=== PATIENT | female | born 1940 | race Caucasian/White ===

== ENCOUNTER 2017-06-17 11:35 | Inpatient (IN) | payer MEDICARE, BC ==
[2017-06-17] MEDS ORDERED: NORMAL SALINE 1000 ML 1,000 ML IV ONE (12:12)
--- NOTE | 2017-06-17 12:22 | ER Document Report ---
ED General - General Chief Complaint: Altered Mental Status Stated Complaint: ALTERED MENTAL STATUS Time Seen by Provider: 06/17/17 12:15 Notes: Patient was brought in for evaluation of altered mental status and not acting right intermittently over the past couple of weeks. She was seen for the same problem at [facility] in [place] last weekend and admitted to that facility Wednesday for a UTI for which she got IV fluids and antibiotics. She was discharged home from there Wednesday on amoxicillin as an outpatient. She seemed to be fine during the initial discharge time, but last night, her son found her taking all of the meats out of the freezer and putting cloths in the freezer. Patient does not remember doing this. Son says she has not been vomiting but did have diarrhea 2 or 3 times yesterday. Patient says that she has not had any diarrhea since her discharge from [facility]. She has not been noted to have any fever although she has had some heavy sweats. 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 Patient wears oxygen when sleeping at night. Does not have asthma or COPD. Never was a smoker. Patient is complaining of pain in her back and pain in her leg. She has been on fentanyl 100 mcg patches, but that was decreased to a 50 mcg patch yesterday. TRAVEL OUTSIDE OF THE [place] IN LAST 30 DAYS: No - Related Data Allergies/Adverse Reactions: Sulfa (Sulfonamide Antibiotics) Allergy (Verified 06/17/17 12:07) Past Medical History - Social History Smoking Status: Never Smoker Family History: Reviewed & Not Pertinent Patient has suicidal ideation: No Patient has homicidal ideation: No - Past Medical History Cardiac Medical History: Reports: Hx Hypertension Neurological Medical History: Reports: Hx Cerebrovascular Accident - Or mini strokes Musculoskeltal Medical History: Reports Hx Arthritis Past Surgical History: Reports: Hx Orthopedic Surgery - Back surgery Review of Systems - Review of Systems Notes: REVIEW OF SYSTEMS: Information provided by sons. CONSTITUTIONAL : Denies fever. EENT: Denies eye, ear, nose or mouth or throat pain or other symptoms. CARDIOVASCULAR: Denies chest pain. RESPIRATORY: Denies cough, chest congestion, or shortness of breath. Wears oxygen at night while sleeping. GASTROINTESTINAL: Denies abdominal pain or nausea, vomiting. Diarrhea 2 or 3 times yesterday. GENITOURINARY: Denies difficulty or painful urinating, urinary frequency, blood in urine. MUSCULOSKELETAL: Has chronic back pain but no neck pain. Denies joint pain or swelling. SKIN: Denies rash or skin lesions. NEUROLOGICAL: Denies LOC, but altered mental status. Denies headache. Denies sensory loss or motor deficits. ALL OTHER SYSTEMS REVIEWED AND NEGATIVE. -: Yes ROS unobtainable due to patient's medical condition Physical Exam - Vital signs Vitals: Resp Pulse Ox 13 99 06/17/17 12:02 06/17/17 12:02 Interpretation: Hypotensive - Notes Notes: PHYSICAL EXAMINATION: GENERAL: Well-appearing, in no acute distress. Blood pressure 90/60. HEAD: Atraumatic, normocephalic. EYES: Pupils equal round and reactive to light, extraocular movements intact. ENT: oropharynx clear without exudates. Moist mucous very dry. NECK: Normal range of motion, supple. LUNGS: Breath sounds clear and equal bilaterally. HEART: Regular rate and rhythm with grade 2/6 systolic murmur. ABDOMEN: Soft, nontender. No guarding or rebound. No masses. BACK: No tenderness throughout entire back. EXTREMITIES: Normal range of motion without pain. NEUROLOGICAL: Normal speech, gait not tested. Normal sensory, motor, and reflex exams. Awake, alert, and answers some questions, but at other times does not have good memory of what happened. PSYCH: Normal mood, normal affect. SKIN: Warm, dry, no rashes. Course - Re-evaluation Re-evalutation: 06/17/17 14:44 Spoke with our hospitalist who will admit the patient for IV fluids and hydration and antibiotics. Patient has remained stable throughout her stay since her blood pressure initially responded to fluids. - Vital Signs Vital signs: Temp Pulse Resp BP Pulse Ox 98.4 F 13 100/52 L 99 06/17/17 12:07 06/17/17 12:02 06/17/17 12:08 06/17/17 12:02 - Laboratory Result Diagrams: 06/17/17 11:52 06/17/17 11:52 Laboratory results interpreted by me: 06/17/17 06/17/17 06/17/17 11:46 11:52 11:52 Hgb 8.6 L Hct 28.2 L MCV 71 L MCH 21.8 L MCHC 30.5 L RDW 16.6 H BUN 65 H Creatinine 2.79 H Est GFR ( Amer) 20 L Est GFR (Non-Af Amer) 16 L Glucose 124 H POC Glucose Total Protein 6.0 L Urine Protein 30 H Urine Ketones TRACE H Urine Bilirubin SMALL H Ur Leukocyte Esterase TRACE H 06/17/17 13:29 Hgb Hct MCV MCH MCHC RDW BUN Creatinine Est GFR ( Amer) Est GFR (Non-Af Amer) Glucose POC Glucose 125 H Total Protein Urine Protein Urine Ketones Urine Bilirubin Ur Leukocyte Esterase - Diagnostic Test Radiology results interpreted by me: 06/17/17 14:45 Chest x-ray with chronic pleural thickening and COPD but no other significant findings. - EKG Interpretation by Me EKG shows normal: Sinus rhythm Rate: Normal Rhythm: NSR Voltage: Consistant with LVH Critical Care Note - Critical Care Note Total time excluding time spent on procedures (mins): 60 Discharge - Discharge Clinical Impression: Prerenal azotemia, Dehydration, Altered mental status, Hypotension Condition: Stable Disposition: ADMITTED INPATIENT Admitting Provider: Hospitalist Unit Admitted: Medical Floor
[2017-06-17 12:28] LABS: APPEARANCE,URINE CLOUDY; BILIRUBIN,URINE SMALL (NEGATIVE); GLUCOSE, URINE NEGATIVE (NEGATIVE); KETONES,URINE TRACE mg/dL (NEGATIVE); LEUKOCYTE ESTERASE,URINE TRACE (NEGATIVE); NITRITE,URINE NEGATIVE (NEGATIVE); PROTEIN,URINE 30 mg/dL (NEGATIVE); URINE SPECIFIC GRAVITY 1.019; UROBILINOGEN,URINE NEGATIVE mg/dL (<2.0)
[2017-06-17 12:30] LABS: INTERNATIONAL RATION (INR) 0.99; PROTHROMBIN TIME 13.6 SEC (11.4-15.4)
[2017-06-17 12:30] LABS: COLOR,URINE YELLOW
[2017-06-17 12:31] LABS: ABSOLUTE BASOPHILS # (AUTO) 0.1 10^3/uL (0.0-0.2); ABSOLUTE EOSINOPHILS # (AUTO) 0.3 10^3/uL (0.0-0.6); ABSOLUTE LYMPHOCYTES (AUTO) 2.3 10^3/uL (0.5-4.7); ABSOLUTE MONOCYTES (AUTO) 0.8 10^3/uL (0.1-1.4); ABSOLUTE NEUT (AUTO) 4.7 10^3/uL (1.7-8.2); EOSINOPHILS % (AUTO) 3.3 % (0-6); HEMATOCRIT 28.2 % (36.0-47.0); HEMOGLOBIN 8.6 g/dL (12.0-15.5); LYMPHOCYTES % (AUTO) 28.6 % (13-45); MEAN CORPUSCULAR HEMOGLOBIN 21.8 pg (27.0-33.4); MEAN CORPUSCULAR HGB CONC 30.5 g/dL (32.0-36.0); MEAN CORPUSCULAR VOLUME 71 fl (80-97); MONOCYTES % (AUTO) 9.9 % (3-13); PLATELET COUNT 415 10^3/uL (150-450); RED BLOOD COUNT 3.95 10^6/uL (3.72-5.28); RED CELL DISTRIBUTION WIDTH 16.6 % (11.5-14.0); SEGMENTED NEUTROPHILS % (AUTO) 57.2 % (42-78); TOTAL CELLS COUNTED % (AUTO) 100 %; WHITE BLOOD COUNT 8.2 10^3/uL (4.0-10.5)
[2017-06-17 12:34] LABS: ALANINE AMINOTRANSFERASE 25 U/L (9-52); ALBUMIN 3.6 g/dL (3.5-5.0); ALKALINE PHOSPHATASE 68 U/L (38-126); ANION GAP 15 (5-19); ASPARTATE AMINO TRANSFERASE 24 U/L (14-36); BILIRUBIN,DIRECT 0.3 mg/dL (0.0-0.4); BILIRUBIN,TOTAL 0.3 mg/dL (0.2-1.3); BLOOD UREA NITROGEN 65 mg/dL (7-20); CALCIUM 8.7 mg/dL (8.4-10.2); CARBON DIOXIDE 24 mmol/L (22-30); CHLORIDE 101 mmol/L (98-107); GLUCOSE 124 mg/dL (75-110); POTASSIUM 4.1 mmol/L (3.6-5.0); SODIUM 139.8 mmol/L (137-145)
[2017-06-17] MEDS ORDERED: DEXTROSE 5%-NORMAL SALINE 1,000 ML IV ONE (12:55)
--- NOTE | 2017-06-17 13:12 | RADIOLOGY REPORT (SQ) ---
EXAM DESCRIPTION: CHEST SINGLE VIEW COMPLETED DATE/TIME: 06/17/2017 12:58 pm REASON FOR STUDY: Hypotension COMPARISON: None. EXAM PARAMETERS: NUMBER OF VIEWS: One view. TECHNIQUE: Single frontal radiographic view of the chest acquired. RADIATION DOSE: NA LIMITATIONS: None. FINDINGS: LUNGS AND PLEURA: Marked hyperinflation of the lungs consistent with COPD. Chronic left p leural thickening. Minimal bilateral apical pleural thickening. MEDIASTINUM AND HILAR STRUCTURES: No masses. Contour normal. HEART AND VASCULAR STRUCTURES: The heart is normal with aortic atherosclerosis. BONES: No acute findings. HARDWARE: None in the chest. OTHER: Chest leads in place. IMPRESSION: COPD. Chronic left pleural thickening. TECHNICAL DOCUMENTATION: JOB ID: [id number] [employer]- All Rights Reserved Reading location - IP/workstation name: [email or web address]
[2017-06-17] MEDS ORDERED: CEFTRIAXONE INJ 1000 MG VIAL IV ONE (13:23)
[2017-06-17] MEDS ORDERED: ONDANSETRON HCL INJ/PF 4 MG/2 ML SDV IV PRN (15:07)
[2017-06-17] MEDS ORDERED: NORMAL SALINE 1000 ML 1,000 ML IV PRN (15:07)
[2017-06-17] MEDS ORDERED: ALBUTEROL SULFATE 0.083% NEB 2.5 MG/3 ML AMPUL NEB PRN (15:07)
[2017-06-17] MEDS ORDERED: ACETAMINOPHEN 325 MG TABLET PO PRN (15:07)
[2017-06-17 15:37] LABS: VENOUS BLOOD BASE EXCESS -2.6 mmol/L; VENOUS BLOOD PCO2 50.5 mmHg (35-63); VENOUS BLOOD PH 7.29 (7.30-7.42)
--- NOTE | 2017-06-17 15:51 | PDOC H&P ---
History of Present Illness Admission Date/PCP: 06/17/17 15:00 Patient complains of: Confusion History of Present Illness: REBECCA HERNANDES is a 77 year old female discharged from [facility] about a week ago following a stay for urinary tract infection. She initially did well, but has been getting more lethargic and confused over the last couple days. Son found her taking all the meat out of the freezer and putting the laundry in, and brought her into the emergency department. She admits that she has not been eating or drinking. States she just does not feel like it. She states she has a neurogenic bladder and has to self cath. She states she has considerable difficulty eating the catheter into the urethra , and has run out of supplies in any case. She denies dysuria, fevers, chills, nausea, vomiting, or diarrhea. She has had no swelling. Past Medical History Cardiac Medical History: Reports: Congestive Heart Failure - Diastolic, Hypertension EENT Medical History: Reports: Cataracts Neurological Medical History: Reports: Other - Neurogenic bladder Renal/ Medical History: Reports: None Malignancy Medical History: Reports: None Musculoskeltal Medical History: Reports: Arthritis Past Surgical History Past Surgical History: Reports: Orthopedic Surgery - Back surgery Social History Information Source: Patient Lives with: Family - Son Smoking Status: Never Smoker Frequency of Alcohol Use: None Hx Recreational Drug Use: No - Advance Directive Resuscitation Status: Full Code Surrogate healthcare decision maker:: Her son Family History Family History: Reviewed & Not Pertinent Parental Family History Reviewed: Yes Children Family History Reviewed: No Sibling(s) Family History Reviewed.: No Medication/Allergy Home Medications: Alprazolam 1 mg PO HSP PRN 06/17/17 Amoxicillin 500 mg PO Q8 06/17/17 Aspirin 81 mg PO DAILY 06/17/17 Cyclobenzaprine HCl 5 mg PO TID PRN 06/17/17 Famotidine 40 mg PO DAILY 06/17/17 Fentanyl [Duragesic 50 Mcg/Hr Transdermal Patch] 1 each TD Q3D 06/17/17 Fluticasone Propionate [Flovent Diskus] 50 mcg IH PRN PRN 06/17/17 Furosemide 20 mg PO DAILY 06/17/17 Gabapentin 800 mg PO TID 06/17/17 Losartan Potassium 50 mg PO BID 06/17/17 Pramipexole Di-HCl [Mirapex] 0.5 mg PO DAILY 06/17/17 Propranolol HCl [Propranolol HCl ER] 120 mg PO DAILY 06/17/17 Allergies/Adverse Reactions: Sulfa (Sulfonamide Antibiotics) Allergy (Verified 06/17/17 12:07) Review of Systems All systems: reviewed and no additional remarkable complaints except as stated Physical Exam Vital Signs: Temp Pulse Resp BP Pulse Ox 97.7 F 13 105/46 L 100 06/17/17 15:16 06/17/17 15:16 06/17/17 15:16 06/17/17 15:16 General appearance: PRESENT: no acute distress, thin Respiratory exam: PRESENT: clear to auscultation marcia Cardiovascular exam: PRESENT: RRR GI/Abdominal exam: PRESENT: soft Extremities exam: PRESENT: other Musculoskeletal exam: PRESENT: normal inspection Neurological exam: PRESENT: alert, oriented to person, oriented to place, oriented to situation, CN II-XII grossly intact Psychiatric exam: PRESENT: appropriate affect Skin exam: PRESENT: warm Results Impressions: Chest X-Ray 06/17/17 12:27 IMPRESSION: COPD. Chronic left pleural thickening. Assessment & Plan - Diagnosis (1) Acute encephalopathy Is this a current diagnosis for this admission?: Yes Plan: Improved since presentation with fluid. Continue to monitor with treatment (2) ARF (acute renal failure) Is this a current diagnosis for this admission?: Yes Plan: Presumably due to volume depletion. Baseline creatinine 0.76 Unclear why she is not taking enough in. Clearly does not like to self cath which may induce her to not drink liquids. Because of the question of bladder outlet obstruction I will place a Horan catheter in order to closely monitor her urine output. Recheck her labs in the morning. Once she is more alert I will remove the Horan catheter and see how she does self catheterizing. (3) UTI (urinary tract infection) Qualifiers: Encounter type: initial encounter Is this a current diagnosis for this admission?: Yes Plan: Unclear if this is residual from her previous urinary tract infection or new. I am inclined to think it is related to self-catheterization/bladder outflow obstruction. (4) Microcytic anemia Is this a current diagnosis for this admission?: Yes Plan: Check an iron reticulocyte count in the morning, as well as she would her hemoglobin is after rehydration. (5) Hypotension Is this a current diagnosis for this admission?: Yes Plan: Improved with fluid. Continue to monitor closely. Hold her antihypertensives and add them back as her blood pressure improves.
[2017-06-17 16:42] LABS: ABSOLUTE RETICS # 0.058 10^6/uL (0.028-0.122); RETICULOCYTE COUNT (AUTO) 1.49 % (0.66-2.85)
[2017-06-17 16:59] LABS: ALBUMIN 3.3 g/dL (3.5-5.0); ANION GAP 14 (5-19); BLOOD UREA NITROGEN 54 mg/dL (7-20); CALCIUM 8.7 mg/dL (8.4-10.2); CARBON DIOXIDE 23 mmol/L (22-30); CHLORIDE 105 mmol/L (98-107); GLUCOSE 126 mg/dL (75-110); PHOSPHORUS 6.1 mg/dL (2.5-4.5); POTASSIUM 3.5 mmol/L (3.6-5.0); SODIUM 141.5 mmol/L (137-145)
--- NOTE | 2017-06-17 23:26 | EKG REPORT ---
SEVERITY:- ABNORMAL ECG - SINUS RHYTHM PROBABLE LEFT ATRIAL ABNORMALITY NONSPECIFIC ST ABNORMALITIES, INFERIOR LEADS : Confirmed by: Sera Gold 17-Jun-2017 23:26:11
[2017-06-18] MEDS ORDERED: GABAPENTIN 300 MG CAPSULE PO ONE (03:00)
[2017-06-18] MEDS ORDERED: ALPRAZOLAM 0.5 MG TABLET PO ONE ×3 (03:00→05:30)
[2017-06-18] MEDS ORDERED: CYCLOBENZAPRINE HCL 10 MG TABLET PO ONE (05:45)
[2017-06-18] MEDS ORDERED: OXYCODONE-ACETAMINOPHEN 5-325 MG TABLET PO ONE (05:45)
[2017-06-18] MEDS ORDERED: LORAZEPAM INJ 2 MG/1 ML VIAL IV ONE ×2 (06:00→12:00)
[2017-06-18 07:15] LABS: ABSOLUTE EOSINOPHILS # (AUTO) 0.4 10^3/uL (0.0-0.6); ABSOLUTE LYMPHOCYTES (AUTO) 2.2 10^3/uL (0.5-4.7); ABSOLUTE MONOCYTES (AUTO) 0.8 10^3/uL (0.1-1.4); ABSOLUTE NEUT (AUTO) 3.7 10^3/uL (1.7-8.2); BASOPHILS % (AUTO) 0.5 % (0-2); EOSINOPHILS % (AUTO) 5.2 % (0-6); HEMATOCRIT 28.4 % (36.0-47.0); HEMOGLOBIN 8.6 g/dL (12.0-15.5); LYMPHOCYTES % (AUTO) 31.3 % (13-45); MEAN CORPUSCULAR HEMOGLOBIN 21.7 pg (27.0-33.4); MEAN CORPUSCULAR HGB CONC 30.2 g/dL (32.0-36.0); MEAN CORPUSCULAR VOLUME 72 fl (80-97); MONOCYTES % (AUTO) 10.7 % (3-13); PLATELET COUNT 390 10^3/uL (150-450); RED BLOOD COUNT 3.96 10^6/uL (3.72-5.28); SEGMENTED NEUTROPHILS % (AUTO) 52.3 % (42-78); TOTAL CELLS COUNTED % (AUTO) 100 %; WHITE BLOOD COUNT 7.2 10^3/uL (4.0-10.5)
[2017-06-18] MEDS ORDERED: CLONAZEPAM 1 MG TABLET PO PRN (07:49)
[2017-06-18 09:24] LABS: HEMATOCRIT 26.9 % (36.0-47.0); HEMOGLOBIN 8.2 g/dL (12.0-15.5); MEAN CORPUSCULAR HEMOGLOBIN 21.8 pg (27.0-33.4); MEAN CORPUSCULAR HGB CONC 30.6 g/dL (32.0-36.0); MEAN CORPUSCULAR VOLUME 71 fl (80-97); PLATELET COUNT 414 10^3/uL (150-450); RED BLOOD COUNT 3.77 10^6/uL (3.72-5.28); RED CELL DISTRIBUTION WIDTH 16.6 % (11.5-14.0); WHITE BLOOD COUNT 7.8 10^3/uL (4.0-10.5)
[2017-06-18 09:39] LABS: ALBUMIN 3.3 g/dL (3.5-5.0); ANION GAP 11 (5-19); BLOOD UREA NITROGEN 42 mg/dL (7-20); CARBON DIOXIDE 24 mmol/L (22-30); CHLORIDE 109 mmol/L (98-107); GLUCOSE 138 mg/dL (75-110); POTASSIUM 4.1 mmol/L (3.6-5.0); SODIUM 144.2 mmol/L (137-145)
[2017-06-18 09:48] LABS: PHOSPHORUS 3.3 mg/dL (2.5-4.5)
[2017-06-18] MEDS ORDERED: CEFTRIAXONE SODIUM 1,000 MG in NORMAL SALINE 100 ML IV SCH (10:00)
[2017-06-18] MEDS ORDERED: CEFTRIAXONE 1 GM/D5W RTU 1 GM/50 ML RTUPB IV SCH (10:00)
[2017-06-18] MEDS ORDERED: LORAZEPAM INJ 2 MG/1 ML VIAL ONE (11:37)
[2017-06-18] MEDS: FLUTICASONE NASAL SPRAY 50 MCG/SPRY 120 SPRAY/16 GM NAREB SCH (12:42)
[2017-06-18] MEDS: FAMOTIDINE 20 MG TABLET PO SCH (12:42)
--- NOTE | 2017-06-18 12:55 | PDOC PROGRESS REPORT ---
Subjective Progress Note for:: 06/18/17 Subjective:: When I was in the room the patient was asleep. She slept through the exam. I discussed the case with her daughter who is lying in a bed next to her. She has had several episodes of very agitated behavior wherein she has demanded Xanax. I think this is the root problem. Reason For Visit: PRERENAL AZOTEMIA DEHYDRATIONALTERED MENTAL STATUS Physical Exam Vital Signs: Temp Pulse Resp BP Pulse Ox 99.1 F 83 17 122/45 L 92 06/18/17 07:51 06/18/17 07:51 06/18/17 07:51 06/18/17 07:51 06/18/17 07:51 Intake & Output 06/17/17 06/18/17 06/19/17 06:59 06:59 06:59 Intake Total 722 Output Total 975 Balance -253 Weight 60.8 kg General appearance: PRESENT: no acute distress Respiratory exam: PRESENT: clear to auscultation marcia Cardiovascular exam: PRESENT: RRR GI/Abdominal exam: PRESENT: soft Neurological exam: PRESENT: other - Moving all extremities Psychiatric exam: PRESENT: other - Alternately sleeping and very agitated Skin exam: PRESENT: warm Results Laboratory Results: 06/18/17 09:08 06/18/17 09:08 06/17/17 06/17/17 06/17/17 15:30 16:30 16:30 WBC 7.2 RBC 3.96 Hgb 8.6 L Hct 28.4 L MCV 72 L MCH 21.7 L MCHC 30.2 L RDW 17.0 H Plt Count 390 Seg Neutrophils % 52.3 Lymphocytes % 31.3 Monocytes % 10.7 Eosinophils % 5.2 Basophils % 0.5 Absolute Neutrophils 3.7 Absolute Lymphocytes 2.2 Absolute Monocytes 0.8 Absolute Eosinophils 0.4 Absolute Basophils 0.0 Retic Count (auto) Absolute Retic VBG pH 7.29 L VBG pCO2 50.5 VBG HCO3 24.0 VBG Base Excess -2.6 Sodium 141.5 Potassium 3.5 L Chloride 105 Carbon Dioxide 23 Anion Gap 14 BUN 54 H Creatinine 2.13 H Est GFR ( Amer) 27 L Est GFR (Non-Af Amer) 22 L Glucose 126 H Calcium 8.7 Phosphorus 6.1 H Magnesium 1.9 Iron Albumin 3.3 L TSH 06/17/17 06/17/17 06/17/17 16:30 16:30 16:30 WBC RBC Hgb Hct MCV MCH MCHC RDW Plt Count Seg Neutrophils % Lymphocytes % Monocytes % Eosinophils % Basophils % Absolute Neutrophils Absolute Lymphocytes Absolute Monocytes Absolute Eosinophils Absolute Basophils Retic Count (auto) 1.49 Absolute Retic 0.058 VBG pH VBG pCO2 VBG HCO3 VBG Base Excess Sodium Potassium Chloride Carbon Dioxide Anion Gap BUN Creatinine Est GFR ( Amer) Est GFR (Non-Af Amer) Glucose Calcium Phosphorus Magnesium Iron 12.5 L Albumin TSH 0.56 06/18/17 06/18/17 09:08 09:08 WBC 7.8 RBC 3.77 Hgb 8.2 L Hct 26.9 L MCV 71 L MCH 21.8 L MCHC 30.6 L RDW 16.6 H Plt Count 414 Seg Neutrophils % Lymphocytes % Monocytes % Eosinophils % Basophils % Absolute Neutrophils Absolute Lymphocytes Absolute Monocytes Absolute Eosinophils Absolute Basophils Retic Count (auto) Absolute Retic VBG pH VBG pCO2 VBG HCO3 VBG Base Excess Sodium 144.2 Potassium 4.1 Chloride 109 H Carbon Dioxide 24 Anion Gap 11 BUN 42 H Creatinine 1.01 Est GFR ( Amer) > 60 Est GFR (Non-Af Amer) 53 L Glucose 138 H Calcium 9.0 Phosphorus 3.3 D Magnesium Iron Albumin 3.3 L TSH Impressions: Chest X-Ray 06/17/17 12:27 IMPRESSION: COPD. Chronic left pleural thickening. Assessment & Plan - Diagnosis (1) Benzodiazepine dependence Is this a current diagnosis for this admission?: Yes Plan: She regulates her own Xanax use. We do not have any old records on her, but she certainly acts like someone in benzodiazepine withdrawal. She is on multiple pain medications for fibromyalgia. (2) Acute encephalopathy Is this a current diagnosis for this admission?: Yes (3) ARF (acute renal failure) Is this a current diagnosis for this admission?: Yes Plan: Considerably improved overnight. Continue present management. I would anticipate she could go home in the morning though daughter is stating that the family is no longer able to care for her. Wherever she goes I think she needs someone to monitor her medication use. (4) UTI (urinary tract infection) Qualifiers: Encounter type: initial encounter Is this a current diagnosis for this admission?: Yes Plan: Unclear if this is residual from her previous urinary tract infection or new. I am inclined to think it is related to self-catheterization/bladder outflow obstruction. I will discontinue her Horan and monitor her urine output. overhauler helper to oral antibiotics. (5) Hypotension Is this a current diagnosis for this admission?: Yes Plan: Improved with fluid. Continue to monitor closely. Restart her oral antihypertensives (6) Iron deficiency anemia Is this a current diagnosis for this admission?: Yes Plan: Replace iron
[2017-06-18] MEDS: GABAPENTIN 400 MG CAPSULE PO SCH ×2 (13:12→21:13)
[2017-06-18] MEDS: PROPRANOLOL HCL 40 MG TABLET PO SCH ×2 (14:28→21:13)
[2017-06-18] MEDS: FERROUS SULFATE 325 MG TABLET PO SCH (17:23)
[2017-06-18] MEDS: ASCORBIC ACID 500 MG TABLET PO SCH (17:23)
[2017-06-18] MEDS ORDERED: FENTANYL 50 MCG/HR PATCH.TD72 TD SCH (19:00)
[2017-06-18] MEDS: CLONAZEPAM 1 MG TABLET PO SCH (21:12)
[2017-06-18] MEDS ORDERED: PRAMIPEXOLE DI-HCL 0.5 MG TABLET PO SCH (22:00)
[2017-06-19] MEDS: GABAPENTIN 400 MG CAPSULE PO SCH (07:04)
[2017-06-19] MEDS: PROPRANOLOL HCL 40 MG TABLET PO SCH (07:05)
[2017-06-19 08:02] VITALS: BP 140/59
[2017-06-19] MEDS: FAMOTIDINE 20 MG TABLET PO SCH (09:03)
[2017-06-19] MEDS: FERROUS SULFATE 325 MG TABLET PO SCH (09:04)
[2017-06-19] MEDS: CLONAZEPAM 1 MG TABLET PO SCH (09:04)
[2017-06-19] MEDS: FLUTICASONE NASAL SPRAY 50 MCG/SPRY 120 SPRAY/16 GM NAREB SCH (09:04)
[2017-06-19] MEDS: ASCORBIC ACID 500 MG TABLET PO SCH (09:04)
[2017-06-19] MEDS ORDERED: (PENDING PHARMACY ID) (Propranolol Hcl [Propranolol Hcl Er] 120 MG) PO SCH (10:00)
[2017-06-19] MEDS ORDERED: CEFPODOXIME 200 MG TABLET PO SCH (10:00)
[2017-06-19] MEDS ORDERED: CEFTRIAXONE SODIUM 1,000 MG in DEXTROSE 5%-WATER 50 ML IV SCH (10:00)
--- NOTE | 2017-06-19 15:06 | PDOC DISCHARGE SUMMARY ---
General - Admit/Disc Date/PCP Admission Date/Primary Care Provider: 06/17/17 15:00 Discharge Date: 06/19/17 - Discharge Diagnosis (1) ARF (acute renal failure) Is this a current diagnosis for this admission?: Yes Summary: Resolved with hydration (2) Benzodiazepine dependence Is this a current diagnosis for this admission?: Yes Summary: She is on a number of sedating medications and was very demanding of benzodiazepines in particular. I think polypharmacy is a significant part of her underlying pathology. She is on multiple medications for fibromyalgia that are of no known benefit. But after having been on them for years, she is certainly dependent. (3) Acute encephalopathy Is this a current diagnosis for this admission?: Yes Summary: Multifactorial including acute renal failure and polypharmacy (4) UTI (urinary tract infection) Is this a current diagnosis for this admission?: Yes Summary: Very mild. Treated with Vantin. I will send her out on 3 more days (5) Hypotension Is this a current diagnosis for this admission?: Yes Summary: Resolved with fluid (6) Iron deficiency anemia Is this a current diagnosis for this admission?: Yes Summary: Iron replacement - Additional Information Resuscitation Status: Full Code Discharge Diet: As Tolerated Discharge Activity: Activity As Tolerated Prescriptions: Cefpodoxime Proxetil [Vantin 200 mg Tablet] 200 mg PO Q12 #6 tablet Clonazepam [Klonopin 1 mg Tablet] 1 mg PO Q12 #60 tablet Home Medications: Alprazolam 1 mg PO DAILYP PRN 06/17/17 Famotidine [Pepcid 40 mg Tablet] 40 mg PO DAILY 06/17/17 Fluticasone Propionate [Flonase Nasal [place] 50 Mcg/[place] 16 gm] 1 spray NAREB DAILY 06/17/17 Gabapentin [Neurontin] 800 mg PO Q8 06/17/17 Pramipexole Di-HCl [Pramipexole Dihydrochloride] 0.5 mg PO QHS 06/17/17 Propranolol HCl [Propranolol HCl ER] 120 mg PO DAILY 06/17/17 Ascorbic Acid [Vitamin C 500 mg Tablet] 500 mg PO BIDPCBS tablet 06/19/17 Cefpodoxime Proxetil [Vantin 200 mg Tablet] 200 mg PO Q12 #6 tablet 06/19/17 Clonazepam [Klonopin 1 mg Tablet] 1 mg PO Q12 #60 tablet 06/19/17 History of Present Illness History of Present Illness: REBECCA HERNANDES is a 77 year old female discharged from [facility] about a week ago following a stay for urinary tract infection. She initially did well, but has been getting more lethargic and confused over the last couple days. Son found her taking all the meat out of the freezer and putting the laundry in, and brought her into the emergency department. She admits that she has not been eating or drinking. States she just does not feel like it. She states she has a neurogenic bladder and has to self cath. She states she has considerable difficulty eating the catheter into the urethra , and has run out of supplies in any case. She denies dysuria, fevers, chills, nausea, vomiting, or diarrhea. She has had no swelling. Hospital Course Hospital Course: She was hydrated vigorously with improvement in her renal function overnight. She was very demanding of sedatives including narcotics and benzodiazepines. Her family seems to be aware of her polypharmacy problem, but also seemed to facilitate it. No one in the family is monitoring her medication use. In any case, she appears to be back to baseline and she will be discharged. Physical Exam Vital Signs: Temp Pulse Resp BP Pulse Ox 98.2 F 71 18 140/59 H 99 06/19/17 11:44 06/19/17 11:44 06/19/17 11:44 06/19/17 11:44 06/19/17 11:44 Intake & Output 06/18/17 06/19/17 06/20/17 06:59 06:59 06:59 Intake Total 722 600 Output Total 975 1200 Balance -253 -600 Weight 60.8 kg 56.9 kg General appearance: PRESENT: no acute distress Respiratory exam: PRESENT: clear to auscultation marcia Cardiovascular exam: PRESENT: RRR GI/Abdominal exam: PRESENT: soft Neurological exam: PRESENT: alert Psychiatric exam: PRESENT: appropriate affect Skin exam: PRESENT: warm Results Laboratory Results: 06/18/17 09:08 06/18/17 09:08 Impressions: Chest X-Ray 06/17/17 12:27 IMPRESSION: COPD. Chronic left pleural thickening. Qualifiers - * PATEINT BEING DISCHARGED WITH ANY OF THE FOLLOWING DIAGNOSIS?: No
== END 2017-06-19 12:48 | disposition home health service (06) | DRG 682 ==
LOC: ER 11:35 → EH 15:00 → 4N 15:53
PROVIDERS: ADMIT Internal Medicine; ATTEND Internal Medicine
DX: N17.9 Acute kidney failure, unspecified (principal); G92 Toxic encephalopathy; T83.518A Infection and inflammatory reaction due to other urinary catheter, initial encounter; N39.0 Urinary tract infection, site not specified; F13.20 Sedative, hypnotic or anxiolytic dependence, uncomplicated; I50.30 Unspecified diastolic (congestive) heart failure; Y84.6 Urinary catheterization as the cause of abnormal reaction of the patient, or of later complication, without mention of misadventure at the time of the procedure; I11.0 Hypertensive heart disease with heart failure; N31.9 Neuromuscular dysfunction of bladder, unspecified; M19.90 Unspecified osteoarthritis, unspecified site; I95.9 Hypotension, unspecified; E86.0 Dehydration; M79.7 Fibromyalgia; D50.9 Iron deficiency anemia, unspecified; Z88.2 Allergy status to sulfonamides; Z86.73 Personal history of transient ischemic attack (TIA), and cerebral infarction without residual deficits
CPT/HCPCS: 36415; 51702; 71045; 80053; 80069; 81001; 82803; 82962; 83540; 83605; 83735; 84443; 85025; 85027; 85045; 85610; 87040; 87086; 93005; 93010; 96361; 96365; 99291; J0696; J2060; J3490; J7030